=== PATIENT | female | born 1990 | race Caucasian/White ===

== ENCOUNTER → 2022-11-23 13:58 | Outpatient (BNVA) | payer OTHER, SELFPAY | PROVIDERS: Family Provider Nurse Practitioner Family; Visit Provider Family Medicine | DX: F41.1 Generalized anxiety disorder (principal); Z11.59 Encounter for screening for other viral diseases; Z11.4 Encounter for screening for human immunodeficiency virus [HIV] | CPT/HCPCS: 80053; 84443; 85025; 86803; 87806 ==